=== PATIENT | female | born 1985 | race Two or more races ===

== ENCOUNTER → 2024-06-05 | Emergency (ER) | payer OTHER ==
[~2024-06-05] VITALS: Ht 147.3 cm; Wt 56.7 kg
== END | disposition left against medical advice (07) ==
LOC: ER 23:20
DX: Z53.21 Procedure and treatment not carried out due to patient leaving prior to being seen by health care provider (principal)

== ENCOUNTER 2024-06-06 14:01 | Emergency (ER) | payer OTHER ==
[~2024-06-06] VITALS: Ht 149.9 cm; Wt 56.7 kg
[2024-06-06] MEDS ORDERED: KETOROLAC TROMETHAMINE 30 MG VIAL IM STA (15:47)
[2024-06-06] MEDS ORDERED: CEFTRIAXONE SODIUM 1,000 MG VIAL IM STA (15:47)
[2024-06-06] MEDS ORDERED: KETOROLAC TROMETHAMINE 30 MG VIAL ONE (15:52)
[2024-06-06] MEDS ORDERED: CEFTRIAXONE SODIUM 1,000 MG VIAL ONE (15:53)
[2024-06-06] MEDS ORDERED: LIDOCAINE HCL 1% 10ML VIAL ONE (15:53)
== END 2024-06-06 16:12 | disposition home or self-care (01) ==
LOC: ER 14:03
DX: J03.90 Acute tonsillitis, unspecified (principal); Z91.018 Allergy to other foods